=== PATIENT | female | born 1970 | race African-American/Black ===

== ENCOUNTER 2023-11-01 21:56 | Emergency (ER) | payer MEDICAID, OTHER ==
[~2023-11-01] VITALS: Ht 165.1 cm; Wt 94.0 kg
[~2023-11-01 21:56] MED LIST: ZINC; [UNRECOGNIZED DRUG - OTHER]
[2023-11-01 22:18] VITALS: BP 152/97; PULSE 88; RESP 18; TEMP 98.2; O2SAT 98
[2023-11-01] MEDS ORDERED: IBUPROFEN 600MG TABLET PO ONE (22:30)
[2023-11-01] MEDS ORDERED: METH-653 MT (22:36)
== END 2023-11-01 22:56 | disposition home or self-care (01) ==
LOC: ER 21:56
DX: M54.50 Low back pain, unspecified (principal)
CPT/HCPCS: 99283

== ENCOUNTER 2024-01-22 16:11 | Emergency (ER) | payer OTHER ==
[~2024-01-22] VITALS: Ht 165.1 cm; Wt 85.0 kg
[~2024-01-22 16:11] MED LIST changes: +METH-653 MT
[2024-01-22 16:17] VITALS: TEMP 98.5; O2SAT 99
[2024-01-22 18:53] LABS: CLARITY URINE CLEAR (CLEAR); COLOR URINE YELLOW (YELLOW); GLUCOSE URINE TRACE (NEGATIVE); KETONES URINE NEGATIVE (NEGATIVE); LEUKOCYTE ESTERASE URINE NEGATIVE (NEGATIVE); NITRITE URINE NEGATIVE (NEGATIVE); OCCULT BLOOD URINE NEGATIVE (NEGATIVE); PROTEIN URINE 1+ (NEGATIVE); SPECIFIC GRAVITY URINE 1.015 (1.005-1.030)
[2024-01-22] MEDS: ACETAMINOPHEN 325MG TABLET PO ONE (19:12)
[2024-01-22 19:21] LABS: RBC URINE 0-2 /hpf (0-2)
[2024-01-22 19:22] LABS: BACTERIA URINE 1+; SQUAMOUS EPITHELIAL CELL URINE 1+ /lpf (RARE/1+)
[2024-01-22] MEDS: IBUPROFEN 800MG TABLET PO ONE (19:32)
[2024-01-23] MEDS ORDERED: TOPUD MT (00:54)
[2024-01-23] MEDS ORDERED: IBUP-1525 MT (00:54)
[2024-01-23] MEDS ORDERED: NITR-87 MT (00:59)
[2024-01-23 04:00] VITALS: BP 142/72; PULSE 87; RESP 16
== END 2024-01-23 04:05 | disposition home or self-care (01) ==
LOC: ER 16:11
DX: M71.21 Synovial cyst of popliteal space [Baker], right knee (principal); S60.212A Contusion of left wrist, initial encounter; S60.211A Contusion of right wrist, initial encounter; N39.0 Urinary tract infection, site not specified; Z88.1 Allergy status to other antibiotic agents; X58.XXXA Exposure to other specified factors, initial encounter; Y93.89 Activity, other specified; Y92.89 Other specified places as the place of occurrence of the external cause; Y99.8 Other external cause status
CPT/HCPCS: 36415; 73100; 81003; 81025; 85379; 93970; 99284